=== PATIENT | male | born 1965 | race Caucasian/White ===

== ENCOUNTER 2019-02-27 00:26 | Emergency (ER) | payer MEDICAID, OTHER ==
[~2019-02-27] VITALS: Ht 185.4 cm; Wt 90.7 kg
[2019-02-27] MEDS ORDERED: ACETAMINOPHEN ES 500 MG TABLET PO ONE (01:00)
[2019-02-27] MEDS ORDERED: predniSONE 20 MG TABLET PO ONE (01:00)
[2019-02-27] MEDS ORDERED: LIDOCAINE 5% PATCH TD ONE ×2 (01:00→01:02)
[2019-02-27] MEDS ORDERED: ACETAMINOPHEN ES 500 MG TABLET ONE (01:01)
[2019-02-27] MEDS ORDERED: predniSONE 20 MG TABLET ONE (01:02)
--- NOTE | 2019-02-27 01:05 | NUR ---
Patient discharged to home in stable conditon. Written and verbal after care instructions given. Patient verbalizes understanding of instructions.
[2019-02-27 01:10] VITALS: BP 148/92
== END 2019-02-27 01:12 | disposition home or self-care (01) ==
LOC: ER 00:28
DX: M54.42 Lumbago with sciatica, left side (principal); F17.200 Nicotine dependence, unspecified, uncomplicated; F15.10 Other stimulant abuse, uncomplicated; X50.1XXA Overexertion from prolonged static or awkward postures, initial encounter; Y93.89 Activity, other specified; Y92.89 Other specified places as the place of occurrence of the external cause; Y99.8 Other external cause status
CPT/HCPCS: 99283; J7512; A4663; A9150